=== PATIENT | female | born 1995 | race Caucasian/White ===

== ENCOUNTER 2023-11-26 13:57 | Emergency (ER) | payer OTHER, SELFPAY ==
[2023-11-26 14:13] VITALS: BP 132/92
[2023-11-26 17:32] LABS: HCG, Urine Qualitative Screen Negative
[2023-11-26 17:58] VITALS: BP 119/74
[2023-11-26] MEDS: BENADRYL 25 MG IV (18:28)
[2023-11-26] MEDS: DECADRON 10 MG IV (18:28)
[2023-11-26] MEDS: COMPAZINE 10 MG IV (18:28)
[2023-11-26] MEDS: TORADOL 30 MG IV (18:28)
[2023-11-26 18:31] LABS: % Basophils 0.4 % (0-2); % Eosinophils 1.7 % (0-6); % Immature Granulocytes 0.2 % (0-0.5); % Lymphocytes 41.1 % (20.5-51.1); % Monocytes 8.4 % (1.7-9.3); % Neutrophils 48.2 % (42.2-75.2); Absolute Eosinophils 0.1 10^3/uL (0-0.7); Absolute Lymphocytes 2.2 10^3/uL (1.2-3.4); Absolute Monocytes 0.4 10^3/uL (0.1-0.6); Absolute Neutrophils 2.5 10^3/uL (1.4-6.5); Hematocrit 38.1 % (37.0-47.0); Hemoglobin 12.7 g/dL (12.0-16.0); Mean Corp Hgb Conc. 33.3 g/dL (33.0-37.0); Mean Corpuscular Hgb 31.1 pg (27.0-31.0); Mean Corpuscular Volume 93.4 fL (81.0-99.0); Mean Platelet Volume 10.6 fL (7.4-10.4); Nucleated Red Blood Cells % 0 %; Platelet Count 226 10^3/uL (130-400); Red Blood Cell Count 4.08 10^6/uL (4.20-5.40); Red Cell Dist. Width 12.2 % (11.5-14.5); White Blood Cell Count 5.3 10^3/uL (4.8-10.8)
[2023-11-26 18:51] LABS: Erythrocyte Sed Rate 11 mm/hour (0-20)
[2023-11-26 18:54] LABS: ALT (SGPT) 11 U/L (0-35); AST (SGOT) 19 U/L (14-36); Albumin 4.5 g/dl (3.5-5.0); Alkaline Phosphatase 53 U/L (38-126); Blood Urea Nitrogen 10 mg/dl (7-17); Calcium 9.4 mg/dl (8.4-10.2); Carbon Dioxide 25 mmol/L (22-30); Chloride 105 mmol/L (98-107); Glucose 104 mg/dl (70-99); Potassium 4.3 mmol/L (3.5-5.1); Sodium 137 mmol/L (135-145); Total Bilirubin 0.5 mg/dl (0.2-1.3); Total Protein 7.2 g/dl (6.3-8.2); eGFR > 60.00
[2023-11-26 18:56] LABS: C-Reactive Protein < 5.00 mg/L (0.0-10.00)
[2023-11-26 19:26] LABS: TSH Reflex To Free T4 1.29 uIU/ml (0.47-4.68)
[2023-11-26 19:37] VITALS: BP 115/72
--- NOTE | 2023-11-26 23:12 | ED.GENMED ---
History of Present Illness
General
Chief Complaint: Headache
Source: patient
Exam Limitations: none
Time Seen by Provider: 11/26/23 16:32
Nursing documentation reviewed up to this point in time: agreed with
Past History
Past History
ED Past Medical History: Other (multiple concussions since 2011)
Social History
Tobacco: Non-smoker
Alcohol: None
Drug: None
Personal: Single
Employment: Employed
Review of Systems
Review of Systems
Allergies reviewed?: Yes
All Other Systems: ROS reviewed and negative except as documented in HPI and ROS
Constitutional: Reports no symptoms
EENT: Reports no symptoms
Respiratory: Reports no symptoms
Cardiac: Reports no symptoms
ABD/GI: Reports no symptoms
: Reports no symptoms
Musculoskeletal: Reports neck pain (neck pressure)
Skin: Reports no symptoms
Neurological: Reports headache (reports severe head pressure)
Course
Orders/Labs/Results
Orders:
Orders
11/26/23 17:00
CT Head W/o Iv Contrast Urgent
Comment:
Reason For Exam: severe head pressure
Test Result ONCE
11/26/23 17:19
HCG, Urine Qualitative Screen Urgent
Date Specimen was Collected: 11/26/23
Time Specimen was Collected: 17:10
11/26/23 18:16
Dexamethasone Sod Phosphate [Decadron] 10 mg IV NOW STA
Diphenhydramine [Benadryl] 25 mg IV NOW STA
Ketorolac [Toradol] 30 mg IV NOW STA
Prochlorperazine [Compazine] 10 mg IV NOW STA
11/26/23 18:22
CRP [C-Reactive Protein] Urgent
Complete Blood Count/With Diff Urgent
Comprehensive Metabolic Panel Urgent
Lyme Progressive Urgent
Sed Rate [Erythrocyte Sed Rate] Urgent
Thyroid profile [TSH Reflex To Free T4] Urgent
Abnormal Lab Results
11/26/23
18:22
RBC 4.08 L 10^6/uL
(4.20-5.40)
MCH 31.1 H pg
(27.0-31.0)
MPV 10.6 H fL
(7.4-10.4)
Glucose 104 H mg/dl
(70-99)
11/26/23 18:22
11/26/23 18:22
Vital Signs
Initial and Last Documented VS:
Initial Vital Signs
Temp Pulse Resp BP Pulse Ox
98.2 F 107 16 132/92 98
11/26/23 14:13 11/26/23 14:13 11/26/23 14:13 11/26/23 14:13 11/26/23 14:13
Last Documented Vital Signs
Temp Pulse Resp BP Pulse Ox
98.3 F 74 16 115/72 99
11/26/23 19:37 11/26/23 19:37 11/26/23 19:37 11/26/23 19:37 11/26/23 19:37
Update Note
Update Note:
Improved with migraine cocktail. SHe is discharged home and will pursue follow up withneurologist. Given instructions on s/s to return to ED and she is agreeable to plan
ED Attending Note
-
Portions of this chart may have been created with voice recognition software.� Occasional wrong word or��sound alike� substitutions may have occurred due to the inherent limitations of voice recognition software.
Discharge Plan
Departure
Patient Disposition: Home (Routine Discharge)
Date of Disposition: 11/26/23
Time of Disposition: 19:36
Patient with high blood pressure during this ER visit?: No
Condition: Good
Covid-19: Not Applicable
Discharge Problem:
Atypical migraine
Instructions: Migraines (DC)
Prescriptions:
New
prednisone 10 mg Tablet
See Rx Instructions .ROUTE .COMPLEX Qty: 30 0RF
Rx Instructions:
Take By Mouth:
40 mg daily x3 days, 30 mg daily x3 days,
20 mg daily x3 days, 10 mg daily x3 days.
Referrals:
NONE,* [Family Provider] -
Thao Eckert, [Active] - Call in 1-3 days for appt
Interventions
Interventions:
*Risk Screen - Suicide Last Done: 11/26/23 15:26
*General Assessment Last Done: 11/26/23 15:26
*Neglect/Abuse Screening Last Done: 11/26/23 15:26
ED- Fall Risk Assessment Last Done: 11/26/23 15:26
*ED COVID-19 Vaccine History Last Done: 11/26/23 14:13
*Nursing Disposition Last Done: 11/26/23 19:39
ED- Neurological Assessment Last Done: 11/26/23 15:26
Discharge Date and Time
Discharge Date/Time: 11/26/23 19:55
Print Language: MALAY
== END 2023-11-26 19:55 | disposition home or self-care (01) ==
LOC: EMR 13:57
PROVIDERS: Nurse Practitioner; EMERGENCY PHYSICIAN Emergency Medicine
DX: G43.909 Migraine, unspecified, not intractable, without status migrainosus (principal)
CPT/HCPCS: 99284; 96374; 96375; 70450; 80053; 81025; 84443; 85025; 85652; 86140; 86618